=== PATIENT | female | born 1980 | race Caucasian/White ===

== ENCOUNTER 2017-07-11 19:21 | Emergency (ER) | payer BC ==
[~2017-07-11 19:21] MED LIST: IBUP-1671 PO; SERT-1 PO
--- NOTE | 2017-07-11 19:37 | ER Report ---
History and Physical Time Seen By MD: 19:38 Hx. of Stated Complaint: anxiety HPI/ROS 37 year old female anxious for several months, feels like someone is screaming in her head. not suicidal or homicidal has worked w [employer] but feels this hasn't helped Remainder of the 14 system rev: Yes Allergies: Coded Allergies: No Known Drug Allergies (Unverified , 07/11/17) Home Meds Reported Medications Sertraline Hcl (ZOLOFT) 50 Mg Tablet, 1 TAB PO QDAY, TAB 03/20/17 Discontinued Reported Medications Ibuprofen (MOTRIN IB) 200 Mg Tablet, 3 TAB PO Q4H 03/20/17 Discontinued Scripts Alprazolam (XANAX) 0.5 Mg Tablet, 1 TAB PO TID, #15 TAB Prov:FELIX RUSSELL 07/11/17 Past Medical/Surgical History endometriosis, depression Reviewed Nurses Notes: Yes Hx Smoking: No Smoking Status: Never Smoker Exposure to Second Hand Smoke?: No Hx Substance Use Disorder: No Hx Alcohol Use: No Family History of: Other Constitutional Vital Sign - Last 24 Hours 07/11/17 19:25 Temp 98.2 Pulse 120 Resp 14 B/P (MAP) 147/91 Pulse Ox 97 O2 Delivery Room Air Physical Exam 37 year old female alert and oriented anxious, tm non reddened throat non reddened, hrr lungs cta, abd soft bs x4 Medical Decision Making Data Points Result Diagram: 07/11/17200407/11/172004 Laboratory Hematology Test 07/11/17 19:59 07/11/17 20:05 Urine Color Red Urine Clarity Slightly-cloudy Urine pH 6.0 pH (4.8-9.5) Urine Specific [place] 1.005 Urine Protein 30 mg/dL (NEGATIVE) Urine Glucose (UA) Negative mg/dL (NEGATIVE) Urine Ketones Negative mg/dL (NEGATIVE) Urine Blood Large (NEGATIVE) Urine Nitrite Negative (NEGATIVE) Urine Bilirubin Negative (NEGATIVE) Urine Urobilinogen Negative mg/dL (0.2-1.9) Urine Leukocyte Esterase Negative (NEGATIVE) Urine RBC 2277 /HPF (0-2/HPF) Urine WBC None /HPF (0-5/HPF) Urine Squamous Epithelial Cells Many /LPF (</=FEW) Urine Bacteria Few /HPF (NONE-FEW) Urine Mucus None /HPF (NONE-FEW) Urine HCG, Qualitative Negative (NEGATIVE) Urine Opiates Screen Negative Urine Barbiturates Screen Negative Ur Tricyclic Antidepressants Screen Negative Urine Phencyclidine Screen Negative Urine Amphetamines Screen Negative Urine Benzodiazepines Screen Negative Urine Cocaine Screen Negative Urine Cannabinoids Screen Negative Red Blood Count 4.94 M/uL (4.17-5.56) Mean Corpuscular Volume 95.3 fL (80.0-96.0) Mean Corpuscular Hemoglobin 32.3 pg (26.0-33.0) Mean Corpuscular Hemoglobin Concent 33.9 g/dL (32.0-36.0) Red Cell Distribution Width 13.9 % (11.5-14.5) Mean Platelet Volume 6.5 fL (7.2-11.1) Neutrophils (%) (Auto) 66.1 % (39.4-72.5) Lymphocytes (%) (Auto) 26.0 % (17.6-49.6) Monocytes (%) (Auto) 5.8 % (4.1-12.4) Eosinophils (%) (Auto) 1.4 % (0.4-6.7) Basophils (%) (Auto) 0.7 % (0.3-1.4) Nucleated RBC Relative Count (auto) 0.0 /100WBC Neutrophils # (Auto) 4.8 K/uL (2.0-7.4) Lymphocytes # (Auto) 1.9 K/uL (1.3-3.6) Monocytes # (Auto) 0.4 K/uL (0.3-1.0) Eosinophils # (Auto) 0.1 K/uL (0.0-0.5) Basophils # (Auto) 0.0 K/uL (0.0-0.1) Nucleated RBC Absolute Count (auto) 0.00 K/uL Sodium Level 142 mmol/L (137-145) Potassium Level 3.6 mmol/L (3.5-5.0) Chloride Level 102 mmol/L (98-107) Carbon Dioxide Level 23 mmol/L (22-31) Blood Urea Nitrogen 8 mg/dl (7-18) Creatinine 0.70 mg/dl (0.52-1.04) Glomerular Filtration Rate Calc > 60.0 Random Glucose 94 mg/dl (75-110) Calcium Level 10.1 mg/dl (8.4-10.2) Magnesium Level 2.0 mg/dl (1.7-2.2) Total Bilirubin 0.2 mg/dl (0.2-1.3) Aspartate Amino Transf (AST/SGOT) 20 U/L (0-35) Alanine Aminotransferase (ALT/SGPT) 27 U/L (0-56) Alkaline Phosphatase 55 U/L (0-126) Total Protein 8.9 gm/dl (6.3-8.2) Albumin 5.0 g/dl (3.5-5.0) Chemistry Test 07/11/17 19:59 07/11/17 20:05 Urine Color Red Urine Clarity Slightly-cloudy Urine pH 6.0 pH (4.8-9.5) Urine Specific [place] 1.005 Urine Protein 30 mg/dL (NEGATIVE) Urine Glucose (UA) Negative mg/dL (NEGATIVE) Urine Ketones Negative mg/dL (NEGATIVE) Urine Blood Large (NEGATIVE) Urine Nitrite Negative (NEGATIVE) Urine Bilirubin Negative (NEGATIVE) Urine Urobilinogen Negative mg/dL (0.2-1.9) Urine Leukocyte Esterase Negative (NEGATIVE) Urine RBC 2277 /HPF (0-2/HPF) Urine WBC None /HPF (0-5/HPF) Urine Squamous Epithelial Cells Many /LPF (</=FEW) Urine Bacteria Few /HPF (NONE-FEW) Urine Mucus None /HPF (NONE-FEW) Urine HCG, Qualitative Negative (NEGATIVE) Urine Opiates Screen Negative Urine Barbiturates Screen Negative Ur Tricyclic Antidepressants Screen Negative Urine Phencyclidine Screen Negative Urine Amphetamines Screen Negative Urine Benzodiazepines Screen Negative Urine Cocaine Screen Negative Urine Cannabinoids Screen Negative White Blood Count 7.2 k/uL (4.5-11.0) Red Blood Count 4.94 M/uL (4.17-5.56) Hemoglobin 16.0 g/dL (12.0-16.0) Hematocrit 47.1 % (34.0-47.0) Mean Corpuscular Volume 95.3 fL (80.0-96.0) Mean Corpuscular Hemoglobin 32.3 pg (26.0-33.0) Mean Corpuscular Hemoglobin Concent 33.9 g/dL (32.0-36.0) Red Cell Distribution Width 13.9 % (11.5-14.5) Platelet Count 302 K/uL (150-450) Mean Platelet Volume 6.5 fL (7.2-11.1) Neutrophils (%) (Auto) 66.1 % (39.4-72.5) Lymphocytes (%) (Auto) 26.0 % (17.6-49.6) Monocytes (%) (Auto) 5.8 % (4.1-12.4) Eosinophils (%) (Auto) 1.4 % (0.4-6.7) Basophils (%) (Auto) 0.7 % (0.3-1.4) Nucleated RBC Relative Count (auto) 0.0 /100WBC Neutrophils # (Auto) 4.8 K/uL (2.0-7.4) Lymphocytes # (Auto) 1.9 K/uL (1.3-3.6) Monocytes # (Auto) 0.4 K/uL (0.3-1.0) Eosinophils # (Auto) 0.1 K/uL (0.0-0.5) Basophils # (Auto) 0.0 K/uL (0.0-0.1) Nucleated RBC Absolute Count (auto) 0.00 K/uL Glomerular Filtration Rate Calc > 60.0 Calcium Level 10.1 mg/dl (8.4-10.2) Magnesium Level 2.0 mg/dl (1.7-2.2) Total Bilirubin 0.2 mg/dl (0.2-1.3) Aspartate Amino Transf (AST/SGOT) 20 U/L (0-35) Alanine Aminotransferase (ALT/SGPT) 27 U/L (0-56) Alkaline Phosphatase 55 U/L (0-126) Total Protein 8.9 gm/dl (6.3-8.2) Albumin 5.0 g/dl (3.5-5.0) Toxicology Test 07/11/17 19:59 Urine Opiates Screen Negative Urine Barbiturates Screen Negative Ur Tricyclic Antidepressants Screen Negative Urine Phencyclidine Screen Negative Urine Amphetamines Screen Negative Urine Benzodiazepines Screen Negative Urine Cocaine Screen Negative Urine Cannabinoids Screen Negative Urinalysis Test 07/11/17 19:59 Urine Color Red Urine Clarity Slightly-cloudy Urine pH 6.0 pH (4.8-9.5) Urine Specific [place] 1.005 Urine Protein 30 mg/dL (NEGATIVE) Urine Glucose (UA) Negative mg/dL (NEGATIVE) Urine Ketones Negative mg/dL (NEGATIVE) Urine Blood Large (NEGATIVE) Urine Nitrite Negative (NEGATIVE) Urine Bilirubin Negative (NEGATIVE) Urine Urobilinogen Negative mg/dL (0.2-1.9) Urine Leukocyte Esterase Negative (NEGATIVE) Urine RBC 2277 /HPF (0-2/HPF) Urine WBC None /HPF (0-5/HPF) Urine Squamous Epithelial Cells Many /LPF (</=FEW) Urine Bacteria Few /HPF (NONE-FEW) Urine Mucus None /HPF (NONE-FEW) Urine HCG, Qualitative Negative (NEGATIVE) ED Course/Re-evaluation ED Course Lab work is within normal limits she has talked to behavioral health triage and she wants to see his psychiatrist as an outpatient notes that she may have to go to [facility] to have this done we'll send her home with Xanax up to 3 times a day #12 no refills return for any problems or concerns Re-evaluation feels xanax dose has helped Decision to Disposition Date: Jul 11, 2017 Decision to Disposition Time: 19:43 Depart Departure Latest Vital Signs Vital Signs Date Time Temp Pulse Resp B/P (MAP) Pulse Ox O2 Delivery O2 Flow Rate FiO2 07/11/17 19:25 98.2 120 14 147/91 97 Room Air Impression: Primary Impression: Anxiety Condition: Improved Disposition: HOME OR SELF-CARE Referrals: WES ALEJANDRA DO 2 Days Patient Instructions: Anxiety (ED) Additional Instructions: Follow-up for your thyroid tests see psychiatry as suggested by behavioral health triage takes Xanax up to 3 times a day as needed for anxiety return for any problems or concerns FELIX RUSSELL Jul 11, 2017 19:37
[2017-07-11] MEDS ORDERED: ALPRAZolam 0.5 MG TAB PO ONE (19:40)
[2017-07-11] MEDS ORDERED: ALPR-429 PO (19:45)
[2017-07-11 20:14] LABS: PLATELET COUNT, AUTOMATED 302 K/uL (150-450)
[2017-07-11 20:30] VITALS: BP 130/88
== END 2017-07-11 20:33 | disposition home or self-care (01) ==
LOC: ER 19:47
DX: F41.9 Anxiety disorder, unspecified (principal)
CPT/HCPCS: 36415; 80305; 81001; 81025; 82040; 82247; 82310; 82374; 82435; 82565; 82947; 83735; 84075; 84132; 84155; 84295; 84443; 84450; 84460; 84520; 85025; 99282

== ENCOUNTER 2017-09-11 21:24 | Observation (INO) | payer BC ==
[~2017-09-11] VITALS: Ht 162.6 cm; Wt 50.1 kg
[~2017-09-11 21:24] MED LIST changes: -CLON0.5T66 PO; -ESCI20TA38 PO; -HYDR-4225 PO; -MULT-859 PO; -[UNRECOGNIZED DRUG - OTHER] PO
--- NOTE | 2017-09-11 21:30 | ER Report ---
History and Physical Time Seen By MD: 21:30 HPI/ROS CHIEF COMPLAINT: phenobarbital overdose HISTORY OF PRESENT ILLNESS: This is a 37 year old female. 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 She mixed these with something sweet and took them orally. She responds that she had a bad day when asked if she was trying to hurt herself and with repeat questioning answers yes. She denies being suicidal. These are 65mg vials. 6 of them are missing although it is not clear exactly how much she took. She is drowsy. She is having nausea and vomiting. She denies any pain at this time, including no abdominal pain or chest pain. She denies using any alcohol or other drugs. Came to the attention of law enforcement when the patient's mother had talked to her on the phone and realized something was wrong so she called the police. REVIEW OF SYSTEMS: Limited due to mental status. See above. Allergies: Coded Allergies: No Known Drug Allergies (Unverified , 07/11/17) Home Meds Reported Medications Sertraline Hcl (ZOLOFT) 50 Mg Tablet, 1 TAB PO QDAY, TAB 03/20/17 Reviewed Nurses Notes: Yes Hx Smoking: No Smoking Status: Never Smoker Exposure to Second Hand Smoke?: No Hx Substance Use Disorder: No Hx Alcohol Use: No Constitutional Vital Sign - Last 24 Hours 09/11/17 09/11/17 09/11/17 09/11/17 21:34 21:45 22:00 22:15 Pulse 98 93 77 ??? Resp 12 23 20 9 B/P (MAP) 112/71 110/68 (82) 109/64 (79) 109/72 (84) Pulse Ox 95 96 97 97 09/11/17 09/11/17 09/11/17 22:30 22:45 23:00 Pulse 81 73 73 Resp 12 19 18 B/P (MAP) 112/49 (70) 103/72 (82) 103/61 (75) Pulse Ox 93 98 98 Physical Exam General Appearance: The patient is drowsy, but is able to follow commands and answer simple questions. No acute distress. Eyes: Pupils are equal, round. Reactive to light. No pallor, injection or icterus. Extraocular movements are intact. ENT: Mucous membranes are moist. Normal oral mucosa. Posterior oropharynx is normal. Normal tympanic membranes and canals. Neck: Supple and non tender. No lymphadenopathy. Respiratory: Lungs are clear to auscultation. Cardiovascular: Regular rate and rhythm. No murmurs, gallops or rubs. Normal capillary refill. Gastrointestinal: Abdomen is soft and non tender. Nondistended. Normal active bowel sounds. Neurological: Alert and oriented x3. Cranial nerves II through XII show no acute deficits on my exam. No focal neurologic deficits in the extremities. Skin: Warm and dry. Musculoskeletal: Extremities are nontender with full range of motion. DIFFERENTIAL DIAGNOSIS: After history and physical exam, differential diagnosis was considered for phenobarbital overdose. Medical Decision Making Data Points Result Diagram: 09/11/17211009/11/172110 Laboratory Hematology Test 09/11/17 21:11 Red Blood Count 4.47 M/uL (4.17-5.56) Mean Corpuscular Volume 95.8 fL (80.0-96.0) Mean Corpuscular Hemoglobin 33.4 pg (26.0-33.0) Mean Corpuscular Hemoglobin Concent 34.9 g/dL (32.0-36.0) Red Cell Distribution Width 13.6 % (11.5-14.5) Mean Platelet Volume 7.2 fL (7.2-11.1) Neutrophils (%) (Auto) 72.7 % (39.4-72.5) Lymphocytes (%) (Auto) 19.0 % (17.6-49.6) Monocytes (%) (Auto) 5.3 % (4.1-12.4) Eosinophils (%) (Auto) 2.6 % (0.4-6.7) Basophils (%) (Auto) 0.4 % (0.3-1.4) Nucleated RBC Relative Count (auto) 0.0 /100WBC Neutrophils # (Auto) 5.3 K/uL (2.0-7.4) Lymphocytes # (Auto) 1.4 K/uL (1.3-3.6) Monocytes # (Auto) 0.4 K/uL (0.3-1.0) Eosinophils # (Auto) 0.2 K/uL (0.0-0.5) Basophils # (Auto) 0.0 K/uL (0.0-0.1) Nucleated RBC Absolute Count (auto) 0.00 K/uL Sodium Level 140 mmol/L (137-145) Potassium Level 3.3 mmol/L (3.5-5.0) Chloride Level 103 mmol/L (98-107) Carbon Dioxide Level 21 mmol/L (22-31) Blood Urea Nitrogen 8 mg/dl (7-18) Creatinine 0.70 mg/dl (0.52-1.04) Glomerular Filtration Rate Calc > 60.0 Random Glucose 106 mg/dl (75-110) Calcium Level 9.5 mg/dl (8.4-10.2) Magnesium Level 2.1 mg/dl (1.7-2.2) Total Bilirubin 0.4 mg/dl (0.2-1.3) Aspartate Amino Transf (AST/SGOT) 17 U/L (0-35) Alanine Aminotransferase (ALT/SGPT) 17 U/L (0-56) Alkaline Phosphatase 49 U/L (0-126) Total Protein 8.1 gm/dl (6.3-8.2) Albumin 4.5 g/dl (3.5-5.0) Salicylates Level < 10 mg/L Salicylate Last Dose Date unk Acetaminophen Level < 10 ug/ml Serum Alcohol < 10 mg/dl Chemistry Test 09/11/17 21:11 White Blood Count 7.3 k/uL (4.5-11.0) Red Blood Count 4.47 M/uL (4.17-5.56) Hemoglobin 14.9 g/dL (12.0-16.0) Hematocrit 42.8 % (34.0-47.0) Mean Corpuscular Volume 95.8 fL (80.0-96.0) Mean Corpuscular Hemoglobin 33.4 pg (26.0-33.0) Mean Corpuscular Hemoglobin Concent 34.9 g/dL (32.0-36.0) Red Cell Distribution Width 13.6 % (11.5-14.5) Platelet Count 254 K/uL (150-450) Mean Platelet Volume 7.2 fL (7.2-11.1) Neutrophils (%) (Auto) 72.7 % (39.4-72.5) Lymphocytes (%) (Auto) 19.0 % (17.6-49.6) Monocytes (%) (Auto) 5.3 % (4.1-12.4) Eosinophils (%) (Auto) 2.6 % (0.4-6.7) Basophils (%) (Auto) 0.4 % (0.3-1.4) Nucleated RBC Relative Count (auto) 0.0 /100WBC Neutrophils # (Auto) 5.3 K/uL (2.0-7.4) Lymphocytes # (Auto) 1.4 K/uL (1.3-3.6) Monocytes # (Auto) 0.4 K/uL (0.3-1.0) Eosinophils # (Auto) 0.2 K/uL (0.0-0.5) Basophils # (Auto) 0.0 K/uL (0.0-0.1) Nucleated RBC Absolute Count (auto) 0.00 K/uL Glomerular Filtration Rate Calc > 60.0 Calcium Level 9.5 mg/dl (8.4-10.2) Magnesium Level 2.1 mg/dl (1.7-2.2) Total Bilirubin 0.4 mg/dl (0.2-1.3) Aspartate Amino Transf (AST/SGOT) 17 U/L (0-35) Alanine Aminotransferase (ALT/SGPT) 17 U/L (0-56) Alkaline Phosphatase 49 U/L (0-126) Total Protein 8.1 gm/dl (6.3-8.2) Albumin 4.5 g/dl (3.5-5.0) Salicylates Level < 10 mg/L Salicylate Last Dose Date unk Acetaminophen Level < 10 ug/ml Serum Alcohol < 10 mg/dl Toxicology Test 09/11/17 21:11 Salicylates Level < 10 mg/L Salicylate Last Dose Date unk Acetaminophen Level < 10 ug/ml Serum Alcohol < 10 mg/dl EKG/Imaging EKG Interpretation 12 lead EKG: Rhythm: normal sinus rhythm, rate 82 [place]: normal QRS: normal ST segments: normal ED Course/Re-evaluation Clinical Indication for ER IV: Hydration, IV Access ED Course Nursing called poison control, 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 Pharmacy history checked, no recent prescriptions. Lab as noted above. Upheld emergency correction. Discussed with Dr. Kang, admit to ICU for medical clearance tonight. tomorrow. Decision to Disposition Date: Sep 11, 2017 Decision to Disposition Time: 22:08 Depart Departure Latest Vital Signs Vital Signs Date Time Temp Pulse Resp B/P (MAP) Pulse Ox O2 Delivery O2 Flow Rate FiO2 09/11/17 23:00 73 18 103/61 (75) 98 Impression: Primary Impression: Intentional phenobarbital overdose Condition: Condition Unchanged Disposition: Admitted from ER Problem Qualifiers Primary Impression: Intentional phenobarbital overdose Encounter type: initial encounter Qualified Codes: T42.3X2A - Poisoning by barbiturates, intentional self-harm, initial encounter FERDINAND FLOOD MD Sep 11, 2017 21:30
[2017-09-11] MEDS ORDERED: NS(*) 0.9% 1000 ML BAG 1,000 ML IV ONE (21:45)
[2017-09-11] MEDS ORDERED: ONDANSETRON 4 MG/2 ML VIAL IVP ONE (21:45)
[2017-09-11 21:56] LABS: PLATELET COUNT, AUTOMATED 254 K/uL (150-450)
[2017-09-11] MEDS ORDERED: EMS NS 0.9%(*) 1000 ML BAG 1,000 ML IV ONE (22:10)
--- NOTE | 2017-09-11 22:14 | BHS - Psychiatric Evaluation ---
ER - Title 25 MHE Evaluation Title 25 Evaluation Patient Detained By: Law Enforcement Referral Source: EMS and Law enforcement Date Patient Detained: Sep 11, 2017 Time Patient Detained: 21:45 Date Jail Expires: Sep 14, 2017 Time Jail Expires: 21:45 Legal Status: Police Hold: No Legal Status: Residence: [facility] Resident Assessment Data Provided By: Patient, Law Enforcement HPI/ROS: This is a 37 year old female. 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 She mixed these with something sweet and took them orally. She responds that she had a bad day when asked if she was trying to hurt herself and with repeat questioning answers yes. She denies being suicidal. These are 65mg vials. 6 of them are missing although it is not clear exactly how much she took. She is drowsy. She is having nausea and vomiting. She denies any pain at this time, including no abdominal pain or chest pain. She denies using any alcohol or other drugs. Came to the attention of law enforcement when the patient's mother had talked to her on the phone and realized something was wrong so she called the police. Admit due to SI or Attempt: No Suicide Plan: No Plan Alcohol or Drugs Involved: Yes Current Intoxication Info: Phenobarbital, no other drugs or alcohol Emergency Medical/Psych Tx: ER with IV fluids and monitoring Is Collateral Info Reliable: Yes Mental Status Exam General Appearance: Cooperative, Psychomotor Retardation Speech: Delayed, Slurred Mood: Dysthmic/Depressed Affect: Flat Thought Process: Other (slowed but logical) Thought Content: No Suicidal Ideation, No Homicidal Ideation Cognition: Alert & Oriented-Person, Alert & Oriented-Place, Alert-Oriented- Situation Insight Judgment: Poor Hallucinations: Denies Delusions: Denies Current Risk & History Current Dangerous Risk Assessm: Self-Injurious Behaviors Past Dangerous Risk Assessm: Suicide Attempts-last 6mo Previous Suicide Attempt: Past - Low Lethality Number of Attempts/Description Per old records, took phenobarbital and rum because she did not want to be here. Previous Psychiatric Illness: Yes Previous Diagnosis/Treatment: Depression and anxiety. Had been admitted to behavioral health in the pasts and trial of Zoloft started. Previous Psychiatric Treatment: Yes Previous Treatment Description As above Risk Assessment & Disposition Evaluated Risk Assessment: Prior event similar. Will uphold nursing home. Impression: Primary Impression: Intentional phenobarbital overdose Meets Mental Illness Req.: Yes Meets Dangerousness Req.: Yes Emergency Jail to be: Upheld Date of Decision: Sep 11, 2017 Time of Decision: 22:56 Patient is Medically Stable at: No Disposition: ICU Problem Qualifiers Primary Impression: Intentional phenobarbital overdose Encounter type: initial encounter Qualified Codes: T42.3X2A - Poisoning by barbiturates, intentional self-harm, initial encounter FERDINAND FLOOD MD Sep 11, 2017 22:14
[2017-09-11] MEDS ORDERED: KCL 2 MEQ/ML 20 MEQ/10 ML VIAL 20 MEQ in D5 1/2 NS(*) 1000 ML BAG 1,000 ML IV PRN (23:25)
[2017-09-11] MEDS ORDERED: INFLUENZA VIRUS VAC 0.5 ML SYR IM ONLY ONE (23:25)
--- NOTE | 2017-09-11 23:52 | History & Physical ---
History of Present Illness History of Present Illness The patient is a 37 year old female with PMH significant for depression with previous suicide attempts who presents with a phenobarbital overdose. She reports having a something happen during the day that resulted in her wanting to hurt herself. She reports taking 13-14 grams of phenobarbital at about 1600. The ER provider got report from EMS that she took about 390mg based on the amount of vials that were empty. The patient denies any other ingestions tonight. Her mother noted something was off when she talked to her on the phone tonight, so called the police. She denies any pain or nausea. She did vomit when she first arrived to the ER. History Problems: (1) Depression with suicidal ideation Status: Acute Home Meds Reported Medications Sertraline Hcl (ZOLOFT) 50 Mg Tablet, 1 TAB PO QDAY, TAB 03/20/17 Allergies: Coded Allergies: No Known Drug Allergies (Unverified , 07/11/17) Patient History: Patient reports no known family medical history. Other Social/Family Hx No current alcohol or illicit drug use. Hx Smoking: No Smoking Status: Never Smoker Exposure to Second Hand Smoke?: No Hx Alcohol Use: No Hx Substance Use Disorder: No Social Drug Use: Never Review of Systems All Systems Reviewed/Normal: Yes, Except as Noted Exam Vital Signs Vital Signs Date Time Temp Pulse Resp B/P (MAP) Pulse Ox O2 Delivery O2 Flow Rate FiO2 09/11/17 23:00 73 18 103/61 (75) 98 General Appearance: No Acute Distress, Other (Breathing comfortably) Neuro: Other (She is sleepy, but answers questions appropriately. She awakens easily. She knows where she is and why she is here) Eyes: PERRLA ENT: Moist Mucous Membranes Cardiovascular: Regular Rate and Rhythm Respiratory: Clear to Auscultation GI: Abd Soft and Non-Tender Extremities: No Edema Integumentary: No Jaundice, No Cyanosis Medical Decision Making Data Points Result Diagram: 09/11/17211009/11/172110 Item Value Date Time Neutrophils (%) (Auto) 72.7 % H 09/11/172110 Lymphocytes (%) (Auto) 19.0 % 09/11/172110 Monocytes (%) (Auto) 5.3 % 09/11/172110 Eosinophils (%) (Auto) 2.6 % 09/11/172110 Basophils (%) (Auto) 0.4 % 09/11/172110 Total Bilirubin 0.4 mg/dl 09/11/172110 Aspartate Amino Transf (AST/SGOT) 17 U/L 09/11/172110 Alanine Aminotransferase (ALT/SGPT) 17 U/L 09/11/172110 Alkaline Phosphatase 49 U/L 09/11/172110 EKG / Imaging EKG Interpretation Reportedly normal ECG per the ER provider, but it hasn't been uploaded Assessment and Plan Problems: (1) Intentional phenobarbital overdose Status: Acute Assessment & Plan: She reports taking 13-14g of phenobarbital at about 1600 with the intent to hurt herself. Her mother called the Police tonight because the patient was not herself on the phone. She has been Emergency Detained. She denies any other ingestions. The urine drug screen is still pending. She has had two other suicide attempts with the last being in February. She is sleepy, but awakens easily. BP/P are stable. She will be watched in the ICU tonight. A repeat Tylenol level will be done 6 hours from the first draw. Klonopin and Lexapro to be held. Copies to: JJ AARON Venous Thromboembolism Antithrombotics Is Pt On Any Antithrombotics?: No Exam Sepsis Risk: No Definite Risk Problem Qualifiers (1) Intentional phenobarbital overdose: Encounter type: initial encounter Qualified Codes: T42.3X2A - Poisoning by barbiturates, intentional self-harm, initial encounter TARIQ SALMON MD Sep 11, 2017 23:52
[2017-09-12] VITALS (24 sets, daily range): BP systolic 87–121; BP diastolic 49–78; Ht 162.6 cm; Wt 50.1 kg
--- NOTE | 2017-09-12 02:27 | EKG ---
FACILITY: [facility] - [place] PATIENT NAME: MARIELLE GHOTRA : [id number] MR: [id number] V: [id number] EXAM DATE: ORDERING PHYSICIAN: FERDINAND FLOOD TECHNOLOGIST: MODESTO Test Reason : OD Blood Pressure : / mmHG Vent. Rate : 082 BPM Atrial Rate : 082 BPM P-R Int : 138 ms QRS Dur : 084 ms QT Int : 382 ms P-R-T Axes : 054 088 061 degrees QTc Int : 446 ms Normal sinus rhythm Normal ECG When compared with ECG of 17-MAR-2017 21:07, No significant change was found Confirmed by TARIQ SALMON ([id number]) on 09/12/2017 6:40:20 AM Referred By: REMIGIO Confirmed By:TARIQ SALMON
[2017-09-12 03:16] LABS: PLATELET COUNT, AUTOMATED 227 K/uL (150-450)
--- NOTE | 2017-09-12 11:40 | Hospitalist Depart ---
Discharge Summary Reason for Hosp/Final Diag: (1) Intentional phenobarbital overdose Status: Acute Hospital Course & Plan: She reports taking 13-14g of phenobarbital at about 1600 with the intent to hurt herself. Her mother called the Police tonight because the patient was not herself on the phone. She has been Emergency Detained. She denies any other ingestions. The urine drug screen is still pending. She has had two other suicide attempts with the last being in February. She is sleepy, but awakens easily. BP/P are stable. She will be watched in the ICU tonight. A repeat Tylenol level will be done 6 hours from the first draw. Klonopin and Lexapro to be held. 09/12: She did well to the management overnight in the ICU. The patient is afebrile, hemodynamically stable without any complaint. She becomes tachycardic while anxious. She is off her Klonopin. She is medically stable to be transferred to [facility], awaiting psych. evaluation. Dr. West was notified. Departure Weight (Pounds): 110 Weight (Ounces): 8.0 Result Diagram: 09/12/17 03009/12/17304 Condition: Improved (medically) Discharge: [facility] Discharge Instructions Home Meds Reported Medications Sertraline Hcl (ZOLOFT) 50 Mg Tablet, 1 TAB PO QDAY, TAB 03/20/17 Activity: As Tolerated Special Instructions: Copies to: ZOE DIAZ MD Venous Thromboembolism Antithrombotics Is Pt On Any Antithrombotics?: No Problem Qualifiers (1) Intentional phenobarbital overdose: Encounter type: initial encounter Qualified Codes: T42.3X2A - Poisoning by barbiturates, intentional self-harm, initial encounter ROBB CLAY MD Sep 12, 2017 11:40
[2017-09-12] MEDS ORDERED: CLON0.5T66 PO (14:55)
[2017-09-12] MEDS ORDERED: [UNRECOGNIZED DRUG - OTHER] PO (14:55)
[2017-09-12] MEDS ORDERED: ESCI20TA38 PO (14:55)
[2017-09-12] MEDS ORDERED: KCL/D1/2NS 20 MEQ 1000 ML 1,000 ML IV SCH (15:00)
== END 2017-09-12 12:37 ==
LOC: ER 21:31 → ICU 09-12 00:01 → INTOOBSV 09-12 00:01
PROVIDERS: ADMIT Internal Medicine; ATTEND Internal Medicine
DX: T42.3X2A Poisoning by barbiturates, intentional self-harm, initial encounter (principal); F32.9 Major depressive disorder, single episode, unspecified; F41.9 Anxiety disorder, unspecified
CPT/HCPCS: 36415; 80305; 80320; 80329; 81001; 81025; 83735; 84443; 85025; 93005; 99285; G0378; J2405; J3480; 82040; 82247; 82310; 82374; 82435; 82565; 82947; 84075; 84132; 84155; 84295; 84450; 84460; 84520

== ENCOUNTER → 2017-09-11 | Outpatient (CLI) | payer BC ==
[~2017-09-11] MED LIST changes: +ALPR-429 PO; +CLON0.5T66 PO; +ESCI20TA38 PO; +HYDR-4225 PO; +MULT-859 PO; +[UNRECOGNIZED DRUG - OTHER] PO
[2017-09-12 08:51] VITALS: BMI 18.9
== END ==
LOC: AMB 20:52
PROVIDERS: ATTEND Nurse Practitioner
DX: R41.82 Altered mental status, unspecified (principal); T42.3X2A Poisoning by barbiturates, intentional self-harm, initial encounter; Y92.019 Unspecified place in single-family (private) house as the place of occurrence of the external cause
CPT/HCPCS: A0425; A0427

== ENCOUNTER 2017-09-12 12:37 | Inpatient (IN) | payer BC ==
[~2017-09-12] VITALS: Ht 162.6 cm; Wt 50.8 kg
[2017-09-12 08:51] VITALS: Ht 162.6 cm; Wt 50.8 kg
[2017-09-12] MEDS ORDERED: MAG HYD/AL HYD/SIMETH 30ML UDC PO PRN (13:00)
[2017-09-12 14:00] VITALS: BP 119/71
[2017-09-12] MEDS ORDERED: CLON0.5T66 PO (14:55)
[2017-09-12] MEDS ORDERED: ESCI20TA38 PO (14:55)
[2017-09-12] MEDS ORDERED: [UNRECOGNIZED DRUG - OTHER] PO (14:55)
[2017-09-12] MEDS: IBUPROFEN 600 MG TAB PO PRN (15:23)
[2017-09-12] MEDS: ESCITALOPRAM OXALATE 10 MG TAB PO SCH (15:23)
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
[2017-09-12 18:00] VITALS: BP 117/81
[2017-09-13 04:03] VITALS: BP 114/75
[2017-09-13] MEDS: MULTIVITAMINS TAB PO SCH (08:23)
[2017-09-13] MEDS: ESCITALOPRAM OXALATE 10 MG TAB PO SCH (08:23)
[2017-09-13 08:31] VITALS: BP 121/76
[2017-09-13] MEDS: PATIENT'S OWN MED PO SCH (12:03)
[2017-09-13 12:35] VITALS: BP 124/76
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
[2017-09-13 16:30] VITALS: BP 129/96
[2017-09-13] MEDS: IBUPROFEN 600 MG TAB PO PRN (16:34)
[2017-09-13 21:00] VITALS: BP 127/84
[2017-09-14 03:40] VITALS: BP 124/82
[2017-09-14] MEDS: IBUPROFEN 600 MG TAB PO PRN ×2 (03:44→12:15)
[2017-09-14 08:00] VITALS: BP 133/94
[2017-09-14] MEDS: ESCITALOPRAM OXALATE 10 MG TAB PO SCH (08:52)
[2017-09-14] MEDS: MULTIVITAMINS TAB PO SCH (08:52)
[2017-09-14] MEDS: PATIENT'S OWN MED PO SCH (08:53)
--- NOTE | 2017-09-14 10:27 | BHS Progress Note ---
BHS - Subjective Progress Notes Subjective Patient interacting well this AM, bright affect, adamantly denies suicidal ideation. Stating she is safe and ready for outpatient care. Patient's appetite intact. Patient appears to be taking an active role in her therapy while on the unit. Concern exists for this patient in regards to similar overdose in February 2017, and recent significant overdose. Will have hearing today for potential 10 day extension. It is the opinion of this provider that patient could benefit from continued evaluation and education on the unit. Will prescribe hydroxyzine tonight, if patient is on the unit. Suicidal Ideation: None Homicidal Ideation: None BHS - Objective Physical Exam Vital Signs Vital Signs Date Time Temp Pulse Resp B/P (MAP) Pulse Ox O2 Delivery O2 Flow Rate FiO2 09/14/17 08:00 99.6 109 16 133/94 (107) 95 Room Air Hematology Test 09/13/17 22:48 Urine Color Yellow Urine Clarity Slightly-cloudy Urine pH 6.0 pH (4.8-9.5) Urine Specific [place] 1.020 Urine Protein Negative mg/dL (NEGATIVE) Urine Glucose (UA) Negative mg/dL (NEGATIVE) Urine Ketones 20 mg/dL (NEGATIVE) Urine Blood Small (NEGATIVE) Urine Nitrite Negative (NEGATIVE) Urine Bilirubin Negative (NEGATIVE) Urine Urobilinogen 2.0 mg/dL (0.2-1.9) Urine Leukocyte Esterase Small (NEGATIVE) Urine RBC 4 /HPF (0-2/HPF) Urine WBC 2 /HPF (0-5/HPF) Urine Squamous Epithelial Cells Many /LPF (</=FEW) Urine Bacteria Negative /HPF (NONE-FEW) Urine Mucus Few /HPF (NONE-FEW) Chemistry Test 09/13/17 22:48 Urine Color Yellow Urine Clarity Slightly-cloudy Urine pH 6.0 pH (4.8-9.5) Urine Specific [place] 1.020 Urine Protein Negative mg/dL (NEGATIVE) Urine Glucose (UA) Negative mg/dL (NEGATIVE) Urine Ketones 20 mg/dL (NEGATIVE) Urine Blood Small (NEGATIVE) Urine Nitrite Negative (NEGATIVE) Urine Bilirubin Negative (NEGATIVE) Urine Urobilinogen 2.0 mg/dL (0.2-1.9) Urine Leukocyte Esterase Small (NEGATIVE) Urine RBC 4 /HPF (0-2/HPF) Urine WBC 2 /HPF (0-5/HPF) Urine Squamous Epithelial Cells Many /LPF (</=FEW) Urine Bacteria Negative /HPF (NONE-FEW) Urine Mucus Few /HPF (NONE-FEW) Urinalysis Test 09/13/17 22:48 Urine Color Yellow Urine Clarity Slightly-cloudy Urine pH 6.0 pH (4.8-9.5) Urine Specific [place] 1.020 Urine Protein Negative mg/dL (NEGATIVE) Urine Glucose (UA) Negative mg/dL (NEGATIVE) Urine Ketones 20 mg/dL (NEGATIVE) Urine Blood Small (NEGATIVE) Urine Nitrite Negative (NEGATIVE) Urine Bilirubin Negative (NEGATIVE) Urine Urobilinogen 2.0 mg/dL (0.2-1.9) Urine Leukocyte Esterase Small (NEGATIVE) Urine RBC 4 /HPF (0-2/HPF) Urine WBC 2 /HPF (0-5/HPF) Urine Squamous Epithelial Cells Many /LPF (</=FEW) Urine Bacteria Negative /HPF (NONE-FEW) Urine Mucus Few /HPF (NONE-FEW) Muscle Strength and Tone: WNL Gait and Station: Steady [facility] Medications Reviewed: Side Effects, Benefits of Medication, Risks Allergies Reviewed: Yes Mental Status Exam General Appearance: Casual, Well Groomed, Good Eye Contact, Cooperative, Polite , Good Interaction, No Unkept, No Tearful, No Psychomotor Agitation, No Psychomotor Retardation, No Bizarre Mannerisms, No Tics Speech: Clear, Spontaneous, Normal Rhythm, Normal Volume, Normal Tone, No Delayed, No Slurred, No Garbled, No Rambling, No Inappropriate Mood: Euthymic (reports good mood today. ) Affect: Full and Appropriate, Calm, No Sad, No Neutral, No Flat, No Withdrawn, No Tearful, No Anxious, No Agitated Thought Process: Organized, Logical, Goal Directed, No Loose Associations, No Flight of Ideas Thought Content: Suicidal Ideation (Denies relevance and significance saying she wants to go home.), No Homicidal Ideation, No Delusions, No Auditory Halllucinations, No Visual Hallucinations, No Thought Broadcasting, No Ideas of Reference, No Obsessions, No Compulsions Sensorium: Clear Cognition: Alert & Oriented-Person, Alert & Oriented-Place, Alert & Oriented- Time, Nlgoh-Jaevirlp-Csakyufix Memory: Immediate, Recent, Remote Intelligence: Above Average (High academic accomlishments.) Insight Judgment: Poor (underlying cluster B and C personality traits, at times maladaptive ) [facility] Assessment and Plan [id number] Encounter Date: Sep 14, 2017 [id number] Encounter Time: 09:30 BHS Plan: Necessary Precautions, Individual/Group Therapy, Admin/Titrate Meds, Educate Patient Tobacco Medications: No Not Appropriate Condition Multpiple Antipsychotics Used: No Problems: (1) Generalized anxiety disorder Optional Permanent Comment: cluster B and C personality traits. Last Edited By: Drew Box on Sep 14, 2017 10:26 Status: Chronic (2) Major depression, recurrent Status: Chronic Condition 1. continue treatment, hearing today. 2. hydroxizine tonight. 3. AMA discharge if patient should be discharged through court. Problem Qualifiers (1) Major depression, recurrent: Active/Remission status: in remission of unspecified degree Qualified Codes: F33.40 - Major depressive disorder, recurrent, in remission, unspecified DREW BOX MD Sep 14, 2017 10:27
[2017-09-14 12:05] VITALS: BP 128/91
[2017-09-14 20:53] VITALS: BP 134/91
[2017-09-14] MEDS ORDERED: hydrOXYzine PAMOATE 25 MG CAP PO SCH (21:00)
[2017-09-15 06:43] VITALS: BP 124/74
[2017-09-15] MEDS: MULTIVITAMINS TAB PO SCH (08:06)
[2017-09-15] MEDS: PATIENT'S OWN MED PO SCH (08:06)
[2017-09-15] MEDS: ESCITALOPRAM OXALATE 10 MG TAB PO SCH (08:06)
[2017-09-15 10:30] VITALS: BP 132/84
--- NOTE | 2017-09-15 11:12 | BHS Progress Note ---
BHS - Subjective Progress Notes Subjective Patient very polite and cooperative, continues to deny symptoms of illness, but does seem to be taking an active role in her treatment. Will continue to set up outpatient treatment, and work on recognizing potential maladaptive personality traits. Will decrease hydroxyzine to 25mg QHS. Suicidal Ideation: None Homicidal Ideation: None S - Objective Physical Exam Vital Signs Vital Signs Date Time Temp Pulse Resp B/P (MAP) Pulse Ox O2 Delivery O2 Flow Rate FiO2 09/15/17 06:43 99.2 85 124/74 (91) 98 Room Air 09/14/17 08:00 16 Hematology Test 09/13/17 22:48 Urine Color Yellow Urine Clarity Slightly-cloudy Urine pH 6.0 pH (4.8-9.5) Urine Specific [place] 1.020 Urine Protein Negative mg/dL (NEGATIVE) Urine Glucose (UA) Negative mg/dL (NEGATIVE) Urine Ketones 20 mg/dL (NEGATIVE) Urine Blood Small (NEGATIVE) Urine Nitrite Negative (NEGATIVE) Urine Bilirubin Negative (NEGATIVE) Urine Urobilinogen 2.0 mg/dL (0.2-1.9) Urine Leukocyte Esterase Small (NEGATIVE) Urine RBC 4 /HPF (0-2/HPF) Urine WBC 2 /HPF (0-5/HPF) Urine Squamous Epithelial Cells Many /LPF (</=FEW) Urine Bacteria Negative /HPF (NONE-FEW) Urine Mucus Few /HPF (NONE-FEW) Chemistry Test 09/13/17 22:48 Urine Color Yellow Urine Clarity Slightly-cloudy Urine pH 6.0 pH (4.8-9.5) Urine Specific [place] 1.020 Urine Protein Negative mg/dL (NEGATIVE) Urine Glucose (UA) Negative mg/dL (NEGATIVE) Urine Ketones 20 mg/dL (NEGATIVE) Urine Blood Small (NEGATIVE) Urine Nitrite Negative (NEGATIVE) Urine Bilirubin Negative (NEGATIVE) Urine Urobilinogen 2.0 mg/dL (0.2-1.9) Urine Leukocyte Esterase Small (NEGATIVE) Urine RBC 4 /HPF (0-2/HPF) Urine WBC 2 /HPF (0-5/HPF) Urine Squamous Epithelial Cells Many /LPF (</=FEW) Urine Bacteria Negative /HPF (NONE-FEW) Urine Mucus Few /HPF (NONE-FEW) Urinalysis Test 09/13/17 22:48 Urine Color Yellow Urine Clarity Slightly-cloudy Urine pH 6.0 pH (4.8-9.5) Urine Specific [place] 1.020 Urine Protein Negative mg/dL (NEGATIVE) Urine Glucose (UA) Negative mg/dL (NEGATIVE) Urine Ketones 20 mg/dL (NEGATIVE) Urine Blood Small (NEGATIVE) Urine Nitrite Negative (NEGATIVE) Urine Bilirubin Negative (NEGATIVE) Urine Urobilinogen 2.0 mg/dL (0.2-1.9) Urine Leukocyte Esterase Small (NEGATIVE) Urine RBC 4 /HPF (0-2/HPF) Urine WBC 2 /HPF (0-5/HPF) Urine Squamous Epithelial Cells Many /LPF (</=FEW) Urine Bacteria Negative /HPF (NONE-FEW) Urine Mucus Few /HPF (NONE-FEW) Muscle Strength and Tone: WNL Gait and Station: Steady [facility] Medications Reviewed: Side Effects, Benefits of Medication, Risks Allergies Reviewed: Yes Mental Status Exam General Appearance: Casual, Well Groomed, Good Eye Contact, Cooperative, Polite , Good Interaction, No Unkept, No Tearful, No Psychomotor Agitation, No Psychomotor Retardation, No Bizarre Mannerisms, No Tics Speech: Clear, Spontaneous, Normal Rate, Normal Rhythm, Normal Volume, Normal Tone, No Delayed, No Slurred, No Garbled, No Rambling, No Inappropriate Mood: Euthymic (reports good mood today. ) Affect: Full and Appropriate, Calm, No Sad, No Neutral, No Flat, No Withdrawn, No Tearful, No Anxious, No Agitated Thought Process: Organized, Logical, Goal Directed, No Loose Associations, No Flight of Ideas Thought Content: Suicidal Ideation (Denies relevance and significance saying she wants to go home.), No Homicidal Ideation, No Delusions, No Auditory Halllucinations, No Visual Hallucinations, No Thought Broadcasting, No Ideas of Reference, No Obsessions, No Compulsions Sensorium: Clear Cognition: Alert & Oriented-Person, Alert & Oriented-Place, Alert & Oriented- Time, Pabhf-[id number]-[id number] Memory: Immediate, Recent, Remote Intelligence: Above Average (High academic accomlishments.) Insight Judgment: Poor (underlying cluster B and C personality traits, at times maladaptive ) [facility] Assessment and Plan Exnd-rp-[id number] Encounter Date: Sep 15, 2017 Tblb-vm-[id number] Encounter Time: 10:00 [facility] Plan: Necessary Precautions, Individual/Group Therapy, Admin/Titrate Meds, Educate Patient Tobacco Medications: No Not Appropriate Condition Multpiple Antipsychotics Used: No Problems: (1) Generalized anxiety disorder Optional Permanent Comment: cluster B and C personality traits. Last Edited By: Drew Box on Sep 14, 2017 10:26 Status: Chronic (2) Major depression, recurrent Status: Chronic Condition 1. lower hydroxyzine to 25mg 2. continue treatment. Problem Qualifiers (1) Major depression, recurrent: Active/Remission status: in remission of unspecified degree Qualified Codes: F33.40 - Major depressive disorder, recurrent, in remission, unspecified DREW BOX MD Sep 15, 2017 11:12
[2017-09-15 17:25] VITALS: BP 118/76
[2017-09-15 20:14] VITALS: BP 132/86
[2017-09-15] MEDS: hydrOXYzine PAMOATE 25 MG CAP PO SCH (23:28)
[2017-09-15] MEDS: IBUPROFEN 600 MG TAB PO PRN (23:28)
[2017-09-15 23:41] VITALS: BP 122/80
[2017-09-16] MEDS: MULTIVITAMINS TAB PO SCH (08:01)
[2017-09-16] MEDS: PATIENT'S OWN MED PO SCH (08:01)
[2017-09-16] MEDS: IBUPROFEN 600 MG TAB PO PRN (08:01)
[2017-09-16] MEDS: ESCITALOPRAM OXALATE 10 MG TAB PO SCH (08:01)
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
[2017-09-16 10:40] VITALS: BP 128/72
[2017-09-16] MEDS: hydrOXYzine PAMOATE 25 MG CAP PO SCH (21:26)
[2017-09-17 06:35] VITALS: BP 106/70
[2017-09-17] MEDS: PATIENT'S OWN MED PO SCH (08:14)
[2017-09-17] MEDS: MULTIVITAMINS TAB PO SCH (08:14)
[2017-09-17] MEDS: ESCITALOPRAM OXALATE 10 MG TAB PO SCH (08:15)
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
[2017-09-17 12:35] VITALS: BP 128/78
[2017-09-17 20:12] VITALS: BP 132/86
[2017-09-17] MEDS: hydrOXYzine PAMOATE 25 MG CAP PO SCH (20:46)
[2017-09-18 06:09] VITALS: BP 134/87
[2017-09-18] MEDS: PATIENT'S OWN MED PO SCH (08:06)
[2017-09-18] MEDS: MULTIVITAMINS TAB PO SCH (08:06)
[2017-09-18] MEDS: ESCITALOPRAM OXALATE 10 MG TAB PO SCH (08:06)
[2017-09-18] MEDS ORDERED: HYDR-4225 PO (09:07)
[2017-09-18] MEDS ORDERED: MULT-859 PO (09:07)
[2017-09-18] MEDS ORDERED: IBUP-1671 PO (09:08)
[2017-09-18 13:16] VITALS: BP 143/101
--- NOTE | 2017-09-19 20:10 | DISCHARGE SUMMARY ---
Patient was seen for note concerning this dictation on the morning of September 18, 2017 at approximately 0830 hours. FINAL DIAGNOSES PER DSM-V Major depression, recurrent severe without psychotic features. Generalized anxiety disorder. 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 This is notably very similar to an February 2017 admission here where she had overdose on barbiturates. Patient spent 24 hours in observation before being brought to [facility]. Patient emergency detained due to relative close proximity and similarity to previous overdose. Patient immediately upon the unit stating she felt fine and was ready to go home. Patient also seemingly indicating a multitude of social stressors that culminated in her overdose attempt. Phenobarbital and pentobarbital that was in patient's possession had been previously removed from her home in the February 2017 admit. Patient notably having multitudes of food service attendant quality alprazolam as well, while simultaneously seeking benzodiazepines at times through outpatient providers. Patient was, however, agreeable to destroying these medications. Patient exhibited no parasuicidal behaviors on the [facility], and did appear to be taking a very active role in her treatment. Court hearings were held allowing patient to have an outpatient commitment put in place where she would show up and work through [employer], show up with outpatient medication and therapy management, would agree to not have any food service attendant substances in place. Listed substances once again removed from the home. Crisis line was given should symptoms return. Patient would remain on Lexapro 15 mg q.a.m. Patient would stop all benzodiazepines prescribed by outpatient providers. Patient would take multivitamin with minerals daily and could take Vistaril 25 mg at bedtime and q.8 hours p.r.n. for anxiety and insomnia. PHYSICAL EXAMINATION GENERAL: Please see emergency room note and ICU notes. VITAL SIGNS: At the time of discharge from [facility] indicated temperature 99.7, pulse 101, blood pressure 143/101, pulse oximetry 96 on room air. LABORATORY DATA Urinalysis on September 15, 2017 indicated a large amount of urine red blood cells. Patient menstruating, and culture indicated contaminated urine. CBC on September 12, 2017 overall unremarkable. On September 12, 2017, CMP was also unremarkable. TSH 2.42. Negative screen. Toxicology screen notably positive for barbiturates at the time of admission, negative for other substances of abuse. ISAURO MENTAL STATUS EXAMINATION AT THE TIME OF DISCHARGE GENERAL APPEARANCE, BEHAVIOR AND ATTITUDE: This is a very polite, cooperative, well-groomed 37-year-old female who appears stated age, making good eye contact with this provider, interacting well with her mother and her therapist present at the time of discharge. SPEECH: Within normal limits, regular rate, rhythm volume and tone. MOOD: Described as good. AFFECT: Full and bright. THOUGHT PROCESSES: Goal directed. Patient requesting discharge. Logical No loose associations or flight of ideas. THOUGHT CONTENT: Free of auditory or visual hallucinations, ideas of reference , thought broadcastings, delusions, obsessions, compulsions. Patient adamantly denying suicidal or homicidal ideation. SENSORIUM: Clear. COGNITION: Alert and oriented to person, place, time and situation. MEMORY: Immediate, recent and remote estimated intact. INTELLIGENCE: Average to above based on interview and historical data. INSIGHT AND JUDGMENT: Considered limited in some ways due to maladaptive stress coping mechanisms and maladaptive personality traits, however, patient is suitable for close observation on an outpatient basis. RESULTS OF TESTING IMAGING: None. LABORATORY DATA: See above. CONSULTATIONS: None. TREATMENT Patient received medications, participated in individual and group therapy. HOSPITAL COURSE Patient did take an active role in her treatment, was accepting of going off of all benzodiazepines, increasing Lexapro from 10 to 15 mg, and continuing Vistaril as needed for anxiety. Patient responded to therapy. CONDITION OF PATIENT ON DISCHARGE Stable. Considered minimal risk to herself or others and appropriate for outpatient care. DISPOSITION Patient discharged to home in the care of her mother. She would follow up with outpatient medication and therapy management as recommended in court outpatient commitment. Patient would avoid all food service attendant medications and substances that are abusable or have lethality in overdose. All illicit substances and food service attendant supplies were removed from the home. Crisis line was given should symptoms return. Patient discharged on Lexapro 15 mg q.a.m., and Vistaril 25 mg q.8 hours p.r.n. for anxiety and insomnia. Risks, benefits and alternatives of the above discharge plan were discussed. Informed consent was given to proceed with above discharge plan by this patient, patient's mother and patient' s therapist present at the time of discharge.. ISHAN
== END 2017-09-18 17:22 | disposition home or self-care (01) | DRG 885 ==
LOC: BHS 12:37
PROVIDERS: ADMIT Psychiatry & Neurology Psychiatry; ATTEND Psychiatry & Neurology Psychiatry
DX: F33.2 Major depressive disorder, recurrent severe without psychotic features (principal); R45.851 Suicidal ideations; F41.1 Generalized anxiety disorder; T42.3X2A Poisoning by barbiturates, intentional self-harm, initial encounter; Z91.5 Personal history of self-harm
CPT/HCPCS: 81001; 87088; 90853; Q0177

== ENCOUNTER 2017-12-01 03:08 | Observation (INO) | payer BC, OTHER ==
[2017-09-12 08:51] VITALS: Ht 162.6 cm; Wt 53.5 kg
[2017-12-01] VITALS (11 sets, daily range): BP systolic 94–133; BP diastolic 61–82
[~2017-12-01] VITALS: Ht 162.6 cm; Wt 53.5 kg
[~2017-12-01 03:08] MED LIST changes: +CLON0.5T66 PO; +ESCI20TA38 PO; +HYDR-4225 PO; +MIRT7.5T2 PO; +MULT-859 PO; +[UNRECOGNIZED DRUG - OTHER] PO
--- NOTE | 2017-12-01 04:13 | HISTORY AND PHYSICAL ---
DATE OF ADMISSION: December 01, 2017 CHIEF COMPLAINT Abdominal pain. HISTORY OF PRESENT ILLNESS Patient is a 37-year-old 1, para 0 with abdominal pain in the lower pelvis starting over six months ago, reports moderate intensity with being severe at times, been gradual onset and aggravated by when she first noticed with gardening. She reports that pain has radiated up to her ribcage. She has pain with her monthly cycles. She is known to have leiomyomas of her uterus, family history for endometriosis. I had discussions with patient regarding her ovaries. She was strongly desiring to have her ovaries removed. She reports that her mother had hysterectomy for endometriosis in her 30s and asked patient to reconsider, and discussed the risks of long-term hormonal management, and will decide by day of surgery. I had discussed forms for hysterectomy. Patient wishes to proceed with robot-assisted hysterectomy with possible bilateral salpingo-oophorectomy, possible modified Ross's culdoplasty and diagnostic cystoscopy. MEDICATIONS 1. Klonopin 0.5. 2. Levora daily. 3. Lexapro 10 mg. ALLERGIES No known drug allergies. REVIEW OF SYSTEMS Genitourinary as per HPI. General, skin, eyes, ears, nose, mouth, neck, respiratory, cardiovascular, gastrointestinal, neurological, psychiatric all reviewed and noncontributory. PAST MEDICAL HISTORY Depression and anxiety. PAST SURGICAL HISTORY She has had rhinoplasty in 1993. FAMILY HISTORY Father with depression and anxiety. SOCIAL HISTORY Does not drink alcohol, is a nonsmoker. No illicit drug use. PHYSICAL EXAMINATION VITAL SIGNS: BP 114/68, temperature 97.4, weight 120. Height 64.25. BMI of 19. CONSTITUTIONAL: Well--nourished, well-developed female in no distress. SKIN: Without rash or lesions. NECK: Supple without masses. HEART: Regular rate and rhythm. LUNGS: Clear to auscultation bilaterally. ABDOMEN: Soft, nontender, nondistended. Bowel sounds positive. EXTREMITIES: Nontender, no edema. PSYCH: Alert and oriented x three. Normal mood and affect. PELVIC: Normal external female genitalia. Well estrogenized vaginal lining, no lesions. No abnormal discharge. No bladder tenderness. Urethra normal in appearance. Cervix normal in appearance. She had right-sided uterine tenderness with a large irregular-shaped uterus. ASSESSMENT AND PLAN Leiomyomatous uterus with pelvic pain. Plan to perform robotic-assisted hysterectomy with possible bilateral salpingo-oophorectomy with at least a bilateral salpingectomy. Possible modified Ross's culdoplasty, then a diagnostic cystoscopy. [facility]
[2017-12-01 06:17] LABS: PLATELET COUNT, AUTOMATED 328 K/uL (150-450)
[2017-12-01] MEDS ORDERED: SCOP1PAT16 TD (06:19)
[2017-12-01] MEDS ORDERED: ROPIVACAINE 0.2% 20 ML VIAL ONE (06:29)
[2017-12-01] MEDS ORDERED: PHENAZOPYRIDINE 200 MG TAB PO ONE (06:30)
[2017-12-01] MEDS ORDERED: FAMOTIDINE 20 MG TAB PO ONE (06:30)
[2017-12-01] MEDS ORDERED: cefOXitin/DEX(*) 2GM/50ML PREM 50 ML IVPB ONE (06:30)
[2017-12-01] MEDS ORDERED: CELECOXIB 200 MG CAP PO ONE (06:30)
[2017-12-01] MEDS ORDERED: LIDOCAINE/SOD BICARB 8.4% SYR ID ONE (06:30)
[2017-12-01] MEDS ORDERED: HYDROmorphone HCL 2 MG TAB PO ONE (06:30)
[2017-12-01] MEDS ORDERED: MIDAZOLAM 2 MG/2 ML VIAL IVP PRN (06:30)
[2017-12-01] MEDS ORDERED: NORMOSOL R SOLN(*) 1000 ML BAG 1,000 ML IV PRN (06:30)
[2017-12-01] MEDS ORDERED: LIDOCAINE/SOD BICARB 8.4% SYR ONE (06:45)
[2017-12-01] MEDS ORDERED: fentaNYL CITR 250 MCG/5 ML AMP ONE (07:04)
[2017-12-01] MEDS ORDERED: ONDANSETRON 4 MG/2 ML VIAL ONE (07:05)
[2017-12-01] MEDS ORDERED: DEXAMETHASONE SOD PHOS 10MG/ML ONE (07:05)
[2017-12-01] MEDS ORDERED: LIDOCAINE MPF 1% 5 ML VIAL ONE (07:05)
[2017-12-01] MEDS ORDERED: PROPOFOL EMUL(*) 10MG/ML 20 ML 20 ML ONE (07:05)
[2017-12-01] MEDS ORDERED: NS 0.9% 20 ML SDV 20 ML ONE (07:11)
[2017-12-01] MEDS ORDERED: SUGAMMADEX SOD 200 MG/2 ML SDV ONE (07:11)
[2017-12-01] MEDS ORDERED: KETAMINE HCL 200 MG/20 ML MDV ONE (07:13)
[2017-12-01] MEDS ORDERED: HALOPERIDOL LACT 5 MG/ML VIAL IM ONE (07:16)
[2017-12-01] MEDS ORDERED: ACETAMINOPHEN(*)1000 MG/100 ML 100 ML IVPB ONE (07:16)
[2017-12-01] MEDS ORDERED: ROCURONIUM BROM 10 MG/ML 10 ML ONE (07:30)
[2017-12-01] MEDS ORDERED: ePHEDrine 25 MG/5 ML DISP.SYR IVP ONE (07:43)
[2017-12-01] MEDS ORDERED: DLR(*) 1000 ML BAG 1,000 ML IV PRN (10:22)
[2017-12-01] MEDS ORDERED: FAMOTIDINE(*) 20MG/50ML PREMIX 50 ML IVPB PRN (10:22)
--- NOTE | 2017-12-01 10:22 | Post Operative Note ---
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 Day Date: Dec 01, 2017 Time: 09:00 Physicians Surgeon: RAMON Mill Tender Warm Up: RUDI Anesthesia: WU Diagnosis Pre-Op Diagnosis: PELVIC PAIN LEIOMYOMA Post-Op Diagnosis: SAME ENDOMETRIOSIS Procedure Findings: LARGE IRREGULAR SHAPED UTERUS OVARY ON LEFT WITH ENDOMETRIOSIS, AND ADHESIONS AND ENDOMETRIOSIS IN LEFT POSTERIOR OVARIAN FOSSA RIGHT OVARY NORMAL, MYOMA POSTERIOR INTRAMURAL [id number] Procedure(s): RALH BSO, DX CYSTO Complications: 0 Fluids Fluids: 1300 CC NR IV Estimated Blood Loss: MINIMAL Dictated Date OP Note Dictated: Dec 01, 2017 Time OP Note Dictated: 10:25 Copies to: MINE NAVARRO MD, JOHN MD Dec 01, 2017 10:22
[2017-12-01] MEDS ORDERED: INFLUENZA VIRUS VAC 0.5 ML SYR IM ONE (10:25)
[2017-12-01] MEDS ORDERED: ONDANSETRON 4 MG/2 ML VIAL IV PRN (10:25)
[2017-12-01] MEDS ORDERED: METOCLOPRAMIDE 10 MG/2 ML SDV IV PRN ×2 (10:25→11:00)
[2017-12-01] MEDS ORDERED: PROMETHAZINE 25 MG/ML 1 ML AMP IVP PRN (10:25)
[2017-12-01] MEDS ORDERED: NORE5TAB8 PO (10:28)
[2017-12-01] MEDS ORDERED: IBUP800T37 PO (10:28)
[2017-12-01] MEDS ORDERED: OXYC-373 PO (10:28)
--- NOTE | 2017-12-01 10:30 | OB/GYN Discharge Summary ---
Discharge Summary Reason for Hosp/Final Diag: (1) S/P robot-assisted surgical procedure Hospital Course & Plan: [facility] BSO PERFORMED NO COMPLICATION, ON DAY 1, PAIN CONTROLLED TOLERATING DIET AND ACTIVITY Lates Vital Signs Vital Signs Date Time Temp Pulse Resp B/P (MAP) Pulse Ox O2 Delivery O2 Flow Rate FiO2 12/01/17 06:09 100.7 107 16 133/82 (99) 94 Room Air Weight (Pounds): 118 Weight (Ounces): 8.0 Result Diagram: 12/01/17609 Condition: Improved Discharge: Home, Self Skilled Nursing Meds Active Scripts Norethindrone Acetate (AYGESTIN) 5 Mg Tablet, 5 MG PO QDAY, #30 TAB 6 Refills Prov:MINE MCCALL MD 12/01/17 Oxycodone Hcl/Acetaminophen (OXYCODONE-ACETAMINOPHEN 5-325) 1 Each Tablet, 1-2 EACH PO Q4H Y for PAIN, #30 TAB 0 Refills TAKE 1-2 TABLET NEEDED FOR PAIN - NO CLOSER THAN EVERY 4 HOURS. Prov:MINE MCCALL MD 12/01/17 Ibuprofen (IBUPROFEN) 800 Mg Tablet, 1 TAB PO Q8H, #30 TAB 0 Refills Take with food every 8 hours. Prov:MINE MCCALL MD 12/01/17 Reported Medications Scopolamine (Scopolamine) 1 Mg/3 Day Patch.td.3, 1 PATCH TD ONCE 12/01/17 Mirtazapine (MIRTAZAPINE) 7.5 Mg Tablet, 7.5 MG PO Y for SLEEP 11/24/17 Ibuprofen (MOTRIN IB) 200 Mg Tablet, 3 TAB PO Q8H Y for PAIN 09/18/17 Hydroxyzine Hcl (HYDROXYZINE HCL) 25 Mg Tablet, 25 MG PO Q8H Y for ANXIETY 09/18/17 Multivits,Ca,Minerals/Iron/Fa (THERA-M TABLET) 1 Each Tablet, 1 EACH PO DAILY 09/18/17 Escitalopram Oxalate (LEXAPRO) 20 Mg Tablet, 15 MG PO QDAY, TAB 09/12/17 [Lavora] No Conflict Check, 1 EA PO QDAY 0.15 MG / 30 MCG 09/12/17 Follow up with: Dr. Mccall [phone] Follow up in: 6 wks PP or PO, 2 wks PO Discharge Diet: As Tolerates Discharge Activity: Pelvic Rest Copies to: MINE MCCALL MD, JOHN MD Dec 01, 2017 10:30
[2017-12-01] MEDS: ACETAMINOPHEN(*)1000 MG/100 ML 100 ML IVPB SCH ×3 (12:30→23:18)
[2017-12-01] MEDS: SIMETHICONE 80 MG CHEW CHEW SCH ×3 (12:30→20:45)
[2017-12-01] MEDS: HYDROmorphone HCL 2 MG TAB PO PRN ×2 (14:55→19:58)
--- NOTE | 2017-12-01 15:25 | OPERATIVE REPORT 1 ---
EVENT DATE: December 01, 2017 SURGEON: Billy Mccall MD ANESTHESIOLOGIST: Alonzo Barros MD ANESTHESIA: General. CIRCULATION SALES REPRESENTATIVE: Deion Ponce MD PREOPERATIVE DIAGNOSES 1. Pelvic pain. 2. Leiomyoma. POSTOPERATIVE DIAGNOSES 1. Pelvic pain. 2. Leiomyoma. 3. Endometriosis. PROCEDURES PERFORMED 1. Robotic-assisted laparoscopic hysterectomy. 2. Bilateral salpingo-oophorectomy. 3. Diagnostic cystoscopy. FLUIDS Normosol 1300 mL IV. COMPLICATIONS None. ESTIMATED BLOOD LOSS Minimal. INDICATIONS The patient is a 37-year-old female with worsening pelvic pain and was noted to have a leiomyoma. After discussion of risks and alternatives, patient desired to have hysterectomy. Discussed alternatives to hysterectomy as well as types of hysterectomy. Patient wished to proceed with robotic-assisted hysterectomy. Had discussion. Patient wished to have her ovaries removed if there were signs of endometriosis. Her mother had a hysterectomy in her 30s as a result of endometriosis as well. We discussed the pros and cons of both, and patient wished to proceed if endometriosis was found with bilateral salpingo- oophorectomy. FINDINGS She had a large, irregularly shaped uterus with a large posterior intramural leiomyoma. Ovary on the left with some endometriosis as well as adhesions of the left tube and endometriosis of the left posterior ovarian fossa. Right ovary appeared normal. Bladder was normal at the end of the procedure along with bilateral ureteral jets could be seen with Pyridium-stained urine. DESCRIPTION OF PROCEDURE After informed consent was obtained, the patient was taken to the operating room with the IV running, placed in the supine position where general anesthesia was obtained without difficulty. She was then placed in the [facility], examined under anesthesia with the above findings. She was placed in Trendelenburg positioning, then repositioned on the table. She was then prepped and draped in the usual fashion. A Power catheter was placed. A side-out speculum was placed into the vagina. Cervix grasped with a Funmilayo clamp. Uterine polyp was noted at cervix opening. The VCare uterine manipulator was then sewn at the 12 and 6 o'clock positions with 0 Vicryl into the cervix. The VCare was so advanced and inflated, then the VCare tied into the uterus with the 0 Vicryl. The rest of the VCare was positioned. The Power catheter had been placed. Legs were lowered. Attention then turned to the abdomen where 0.2% Naropin was infiltrated above the umbilicus. Skin incision made with a scalpel. Veress needle advanced into the abdominal cavity. Normal CO2 filling pressures were noted. An 8 mm bladeless trocar was advanced into the abdominal cavity. No injuries were noted at time of entry. The port placement was measured 8 cm apart in midline where a horizontal line across the abdominal with ports #1 and #2 being placed on the patient's left and port #3 in the midline. The #4 port was on the patient's right. Patient was small. The assist port was lowered a bit on her right side, making a right lateral port. The ports were placed in a similar fashion with 0.2% Naropin, the incision being made with a scalpel and advancing the trocars under direct visualization. After all the ports were advanced and no injuries were noted, the ports were positioned properly, and the patient was placed in Trendelenburg positioning at a 23-degree angle. Bowel was allowed to escape from the pelvis. The robot was then docked. The camera was placed, and targeting was successful. The remainder of the instruments were placed with a vessel sealer in #4, scissors in #2, ProGrasp in #1. Dr. Mccall then transferred to the robot console where he took over the instruments after they had been advanced into the abdominal cavity. Patient was noted to have adhesions in the left ovarian fossa with the tube adhered to the pelvic sidewall. Endometriosis was noted with some oozing from the lesions. Normal anatomy was restored, and then the decision at that point was to remove the ovaries as per patient request. The uterus was elevated, and the right tube was grasped and traction applied. The infundibulopelvic ligament was identified. Ureters were identified on the pelvic sidewalls. The infundibulopelvic ligament was then grasped with a vessel sealer, coapted, and transected. The mesosalpinx was then grasped with a vessel sealer and transected down towards the round ligament. The round ligament was transected with a vessel sealer. Again, the broad ligament was then grasped with a vessel sealer, transected down towards the lower uterine segment. At this point, the ProGrasp was used to tent up the peritoneum above the VCare ring. The scissors were then used to incise the peritoneum over the ring. The uterine arteries were then skeletonized and noted to be in typical location. The vessel sealer was then used to seal the uterine arteries at their insertion in the lower uterine segment, then transected. The vessel sealer was then used to grasp the uterine arteries parallel to the cervix with the initial bite being perpendicular and the second being parallel. Once grasped with the vessel sealer, they were transected with the Endo Bandar. After serially clamping and then cutting with the vessel sealer and scissors down to complete transection of the uterine arteries, a colpotomy was performed at the 12 o'clock position, identifying the cuff. Attention then turned back to the patient's left where the infundibulopelvic ligament was identified, traction placed with the ProGrasp, and vessel sealer used to grasp the infundibulopelvic ligament, sealing and transecting, dissecting the tube and ovary away from the pelvic sidewall down to the round ligament. The round ligament was grasped with a vessel sealer, sealed, and transected. The broad ligament in a similar fashion as the right was clamped with the vessel sealer and then transected down to the lower uterine segment. Completion of the bladder flap was performed with the Endo Bandar anteriorly with the assistance of the ProGrasp. The uterine arteries were, again, identified. The posterior leaf of the peritoneum was transected away from the uterine arteries. Once the arteries were identified at a perpendicular angle, the vessel sealer was used to seal the uterine arteries and then transect them. Placing the vessel sealer more parallel to the cervix, it was used to seal and transect. The scissors were then used to incise the remaining pedicles. Once the entire uterine artery pedicle was sealed, the colpotomy was carried from the 12 o'clock position in a counterclockwise manner around to the left side, completing the colpotomy following the VCare ring all the way posteriorly. Once it was completed to approximately the 5 o'clock position, attention then turned back to the patient's right, and the colpotomy was carried down in a clockwise manner from the 12 o'clock position to the 5 o'clock position, transecting the uterus. The uterus was then removed from the pelvis. Suction was performed, and 0 Vicryl was used on the right side with a [id number] suture, including the uterosacral ligament. The apex on the left was just closed in an interrupted fashion encompassing the uterosacral ligament on the patient's left. Suture of 0 Vicryl was then used to close in a running fashion initially from the left to the midline, and the right was taken from the right side to the midline with the 0 Vicryl and then tied in the middle. There was some oozing from the left side pedicle. This was made hemostatic with a figure-of- eight suture of the 0 Vicryl. Once the cuff had been closed, and irrigation was performed, all the suture and needles were removed. No injuries were noted. All instruments were removed from the abdominal cavity. The robot was undocked. The 10-12 port was closed with assistance of the Griffin-Dameon puncture closure device, and the skin was closed with 4-0 Maxon and Dermabond. Cystoscopy was performed. The Power catheter was removed. The cystoscope was advanced. Bilateral ureteral jets could be seen on the left and right. No injuries were noted within the bladder. The bladder was drained. Power catheter was then replaced. Patient was taken out of the [facility], awakened from anesthesia, and taken to the recovery room in stable condition. ISHAN
--- NOTE | 2017-12-01 18:13 | OB/GYN Progress Note ---
OB Subjective Progress Notes Subjective pain controlled tolerating diet and activity GI: NEG Nausea, NEG Vomiting, NEG Flatus Pain: Mild OB Objective Physical Exam Vital Signs Date Time Temp Pulse Resp B/P (MAP) Pulse Ox O2 Delivery O2 Flow Rate FiO2 12/01/17 16:05 96 12/01/17 16:05 99.2 78 16 100/66 (77) Room Air 12/01/17 13:30 1.0 Intake and Output 12/02/17 07:00 Intake Total 1400 ml Output Total 150 ml Balance 1250 ml Intake IV Total 1400 ml Output Urine Total 150 ml Cardiovascular: Regular Rate and Rhythm Respiratory: Clear to Auscultation Abdomen: Soft, Non-Tender, Non-Distended, Bowel Sounds Present Extremities: No Edema Result Diagram: 12/01/17 0610 Assessment and Plan Problems: (1) S/P robot-assisted surgical procedure Assessment & Plan: PAIN CONTROLLED TOLERATING DIET AND ACTIVITY, PVR IN AM MINE NAVARRO MD Dec 01, 2017 18:13
[2017-12-01] MEDS: CELECOXIB 200 MG CAP PO SCH (20:45)
[2017-12-01] MEDS: FAMOTIDINE 20 MG TAB PO SCH (20:45)
[2017-12-01] MEDS: DOCUSATE CALCIUM 240 MG CAP PO SCH (21:00)
[2017-12-02 03:14] VITALS: BP 93/57
[2017-12-02] MEDS: ACETAMINOPHEN(*)1000 MG/100 ML 100 ML IVPB SCH (05:56)
[2017-12-02 06:37] LABS: PLATELET COUNT, AUTOMATED 251 K/uL (150-450)
[2017-12-02 07:44] VITALS: BP 107/75
[2017-12-02] MEDS: DOCUSATE CALCIUM 240 MG CAP PO SCH (07:49)
[2017-12-02] MEDS: CELECOXIB 200 MG CAP PO SCH (07:49)
[2017-12-02] MEDS: SIMETHICONE 80 MG CHEW CHEW SCH (07:49)
[2017-12-02] MEDS: FAMOTIDINE 20 MG TAB PO SCH (07:49)
--- NOTE | 2017-12-02 07:59 | OB/GYN Progress Note ---
OB Subjective Progress Notes Subjective Pain controlled, Tolerating diet and activity. Will perform PVR this am. 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 will perform PVR this am and DC if continues to meet goals MINE NAVARRO MD Dec 02, 2017 07:59
== END 2017-12-02 09:34 | disposition home or self-care (01) ==
LOC: OR 03:08 → PED 11:50 → INTOOBSV 11:50
PROVIDERS: ADMIT Obstetrics & Gynecology; ATTEND Obstetrics & Gynecology
DX: D25.1 Intramural leiomyoma of uterus (principal); R10.2 Pelvic and perineal pain
CPT/HCPCS: 36415; 58571; 84703; 85025; 88307; G0378; J0131; J0694; J1100; J1630; J2001; J2250; J2405; J2704; J2795; J3010; J3490; J7050; S2900